=== PATIENT | female | born 1985 | race African-American/Black ===

== ENCOUNTER 2021-06-12 21:21 | Emergency (ER) | payer SELFPAY ==
[~2021-06-12] VITALS: Ht 170.2 cm; Wt 78.0 kg
[2021-06-12] MEDS ORDERED: ALBUTEROL (0.083%) 2.5MG/3ML NEB HHN ONE (22:45)
[2021-06-12] MEDS ORDERED: IPRATROPIUM BROMIDE (0.02%) 0.5MG/2.5ML NEB HHN ONE (22:45)
[2021-06-12 23:09] LABS: BASOPHILS % 0.9 % (0.0-2.0); EOSINOPHILS % 0.8 % (0.0-5.0); HEMATOCRIT. 41.4 % (36.0-48.0); HEMOGLOBIN. 14.3 g/dL (12.0-16.0); LYMPHOCYTES % 38.2 % (20.0-50.0); MEAN CORPUSCULAR HEMOGLOBIN 33.2 pg (28.0-32.0); MEAN CORPUSCULAR VOLUME 96.5 fL (81.0-99.0); MEAN PLATELET VOLUME 7.8 fl (7.4-10.4); MONOCYTES % 5.5 % (2.0-8.0); NEUTROPHILS % 54.6 % (40.0-76.0); PLATELET 362 x1000/uL (130-400); RED BLOOD CELL COUNT 4.29 mill/uL (4.2-5.4); RED CELL DISTRIBUTION WIDTH 14.9 % (11.6-14.6)
[2021-06-12 23:17] LABS: CHLORIDE 105 mEq/L (98-107)
[2021-06-12] MEDS ORDERED: ALBU18HF2 IH (23:25)
[2021-06-12] MEDS ORDERED: BENZ-16 PO (23:25)
[2021-06-12] MEDS ORDERED: METHYLPREDNISOLONE SOD SUCC 125 MG/2 ML VIAL IM ONE (23:30)
[2021-06-13 00:35] VITALS: BP 138/97
== END 2021-06-13 00:44 | disposition home or self-care (01) ==
LOC: ER 21:21
DX: J06.9 Acute upper respiratory infection, unspecified (principal); J45.901 Unspecified asthma with (acute) exacerbation; M79.7 Fibromyalgia; Z88.0 Allergy status to penicillin; Z98.51 Tubal ligation status; Z98.890 Other specified postprocedural states
CPT/HCPCS: 36415; 71045; 80048; 85025; 93005; 94640; 96372; 99285; J2930; Z7610

== ENCOUNTER 2021-07-25 14:11 | Emergency (ER) | payer SELFPAY ==
[~2021-07-25] VITALS: Ht 170.2 cm; Wt 63.0 kg
[~2021-07-25 14:11] MED LIST: ALBU18HF2 IH; BENZ-16 PO
[2021-07-25 14:28] VITALS: BP 123/81
== END 2021-07-25 15:50 | disposition home or self-care (01) ==
LOC: ER 14:11
DX: Z20.822 Contact with and (suspected) exposure to COVID-19 (principal); M79.7 Fibromyalgia; Z98.890 Other specified postprocedural states; Z88.0 Allergy status to penicillin
CPT/HCPCS: 99283; C9803; U0003; U0005

== ENCOUNTER 2022-01-31 10:14 | Emergency (ER) | payer SELFPAY ==
[~2022-01-31] VITALS: Ht 170.2 cm; Wt 73.0 kg
[2022-01-31] MEDS ORDERED: SODIUM CHLORIDE 0.9% 1,000 ML IV SCH (10:45)
[2022-01-31] MEDS ORDERED: DIPHENHYDRAMINE 50MG/ML VIAL IV ONE (10:45)
[2022-01-31] MEDS ORDERED: METHYLPREDNISOLONE SOD SUCC 125 MG/2 ML VIAL IV ONE (10:45)
[2022-01-31] MEDS ORDERED: FAMOTIDINE 20MG/2ML VIAL IV ONE (10:45)
[2022-01-31] MEDS ORDERED: EPINEPHRINE 1:1000 1 MG/ML AMP IM ONE (10:45)
[2022-01-31 13:19] VITALS: BP 135/74
== END 2022-01-31 13:34 | disposition left against medical advice (07) ==
LOC: ER 11:55
DX: T78.2XXA Anaphylactic shock, unspecified, initial encounter (principal); X58.XXXA Exposure to other specified factors, initial encounter; M79.7 Fibromyalgia; Z98.890 Other specified postprocedural states; Z98.51 Tubal ligation status; Z88.0 Allergy status to penicillin
CPT/HCPCS: 96361; 96372; 96374; 96375; 99284; J1200; J2930; J3490

== ENCOUNTER 2022-06-04 02:42 | Emergency (ER) | payer MEDICAID ==
[~2022-06-04] VITALS: Ht 170.2 cm; Wt 80.0 kg
[2022-06-04] MEDS ORDERED: IBUP-2029 MT (04:00)
[2022-06-04 04:14] VITALS: BP 130/88
[2022-06-04] MEDS ORDERED: IBUPROFEN 600MG TABLET PO NR (04:15)
== END 2022-06-04 04:14 | disposition home or self-care (01) ==
LOC: ER 02:57
DX: S20.212A Contusion of left front wall of thorax, initial encounter (principal); Z88.0 Allergy status to penicillin; Z91.018 Allergy to other foods; Z98.890 Other specified postprocedural states; Z98.51 Tubal ligation status; W18.30XA Fall on same level, unspecified, initial encounter; Y93.89 Activity, other specified; Y92.89 Other specified places as the place of occurrence of the external cause; Y99.8 Other external cause status
CPT/HCPCS: 71045; 81025; 99283